=== PATIENT | female | born 1945 | race Caucasian/White ===

== ENCOUNTER 2017-03-04 16:01 | Observation (INO) | payer MEDICARE, BC ==
[~2017-03-04 16:01] MED LIST: ASPIRIN81 M1 CH; CALCIUM 600 +1 EA10 PO; DIOVAN HCT 3201 EACH PO; FISH OIL 1,0001 EA10 PO; GEMFIBROZIL600 MG PO; GLUCOPHAGE500 MG PO; LEVOTHYROXINE200 MC4 PO; MULTIVITAMINS1 EAC7 PO; RELAFEN750 MG PO; TERAZOSIN HCL5 MG PO; TOPROL XL100 M1 PO; [UNRECOGNIZED DRUG - OTHER] PO
[2017-03-04] MEDS ORDERED: FENOFIBRATE160 MG PO (16:08)
[2017-03-04] MEDS ORDERED: NORVASC10 M2 PO (16:11)
[2017-03-04] MEDS ORDERED: PROZAC20 M3 PO (16:12)
[2017-03-04] MEDS ORDERED: GLUCOPHAGE1000 M1 PO (16:12)
[2017-03-04] MEDS ORDERED: OMEPRAZOLE20 M3 PO (16:12)
[2017-03-04] MEDS ORDERED: ULTRAM50 M1 PO (16:46)
[2017-03-04] MEDS ORDERED: TYLENOL ARTHRI650 M1 PO (16:47)
[2017-03-04 17:32] LABS: BASO % 0.5 % (0-2); EOS % 3.1 % (0-7); EOSINOPHIL ABSOLUTE COUNT 0.1 tho/cmm (0.0-0.7); HGB-HEMOGLOBIN 12.3 gm/dl (12.0-15.5); IMMATURE GRANULOCYTES ABSOLUTE 0.01 tho/cmm (0-0.03); IMMATURE GRANULOCYTES PERCENT 0.2 % (0-0.3); LYMPH % 26.7 % (20-45); LYMPH ABSOLUTE COUNT 1.1 tho/cmm (0.8-4.5); MCHC MEAN CORPUSCULAR HGB CONC 33.2 % (32.0-36.0); MCV (MEAN CELL VOLUME) 87.3 fl (82.0-96.0); MEAN PLATELET VOLUME 11.6 cmc (9.4-12.4); MONO % 8.8 % (0-12); MONOCYTE ABSOLUTE COUNT 0.4 tho/cmm (0.0-1.2); NEUTROPHIL ABSOLUTE COUNT 2.6 tho/cmm (1.6-8.0); NEUTROPHIL-AUTOMATED 2.6 tho/cmm (1.6-8.0); NEUTROPHILS % 60.7 % (40-80); PLATELET COUNT 206 tho/cmm (150-450); RED BLOOD COUNT 4.24 mil/cmm (4.00-5.20); RED CELL DISTRIBUTION WIDTH 12.7 % (12.4-16.4); WHITE BLOOD COUNT 4.2 tho/cmm (4.0-10.0)
[2017-03-04 17:40] LABS: PROTHROMBIN TIME 11.6 SECONDS (9.0-13.6)
[2017-03-04 17:51] LABS: ALB/GLOB RATIO 0.9 (0.8-2.0); ALBUMIN 3.2 g/dl (3.5-5.0); ALKALINE PHOSPHATASE 64 U/L (33-138); ALT/SGPT 31 U/L (12-78); BILIRUBIN,TOTAL 0.3 mg/dl (0-1.5); BLOOD UREA NITROGEN 23 mg/dl (6-24); CALCIUM 8.9 mg/dl (8.5-10.5); CARBON DIOXIDE-VENOUS 27 mmol/L (22-32); CHLORIDE 103 mmol/l (96-110); CREATININE 0.99 mg/dl (0.50-1.10); GLUCOSE 160 mg/dL (70-110); LIPASE 66 U/L (73-393); SODIUM 139 mmol/L (135-145); eGFR VALUE FOR BLACK 66 mL/Min
[2017-03-04 17:59] LABS: ANION GAP 13 mmol/L (0-20); AST/SGOT 39 U/L (10-40); POTASSIUM 4.2 mmol/L (3.7-5.1)
[2017-03-05 05:38] LABS: BASO % 0.5 % (0-2); EOS % 3.5 % (0-7); EOSINOPHIL ABSOLUTE COUNT 0.1 tho/cmm (0.0-0.7); HCT-HEMATOCRIT 34.7 % (34.0-49.0); HGB-HEMOGLOBIN 11.6 gm/dl (12.0-15.5); IMMATURE GRANULOCYTES ABSOLUTE 0.01 tho/cmm (0-0.03); IMMATURE GRANULOCYTES PERCENT 0.3 % (0-0.3); LYMPH % 40.2 % (20-45); LYMPH ABSOLUTE COUNT 1.6 tho/cmm (0.8-4.5); MCH (MEAN CORPUSCULAR HGB) 29.3 pg (28.0-32.0); MCHC MEAN CORPUSCULAR HGB CONC 33.4 % (32.0-36.0); MCV (MEAN CELL VOLUME) 87.6 fl (82.0-96.0); MEAN PLATELET VOLUME 11.4 cmc (9.4-12.4); MONO % 9.3 % (0-12); MONOCYTE ABSOLUTE COUNT 0.4 tho/cmm (0.0-1.2); NEUTROPHIL ABSOLUTE COUNT 1.8 tho/cmm (1.6-8.0); NEUTROPHIL-AUTOMATED 1.8 tho/cmm (1.6-8.0); NEUTROPHILS % 46.2 % (40-80); PLATELET COUNT 199 tho/cmm (150-450); RED BLOOD COUNT 3.96 mil/cmm (4.00-5.20); RED CELL DISTRIBUTION WIDTH 12.7 % (12.4-16.4)
[2017-03-06 05:40] LABS: BASO % 0.8 % (0-2); EOS % 3.9 % (0-7); EOSINOPHIL ABSOLUTE COUNT 0.1 tho/cmm (0.0-0.7); HCT-HEMATOCRIT 34.7 % (34.0-49.0); HGB-HEMOGLOBIN 11.6 gm/dl (12.0-15.5); LYMPH % 27.5 % (20-45); MCH (MEAN CORPUSCULAR HGB) 29.1 pg (28.0-32.0); MCHC MEAN CORPUSCULAR HGB CONC 33.4 % (32.0-36.0); MCV (MEAN CELL VOLUME) 87.2 fl (82.0-96.0); MEAN PLATELET VOLUME 11.2 cmc (9.4-12.4); MONO % 8.5 % (0-12); MONOCYTE ABSOLUTE COUNT 0.3 tho/cmm (0.0-1.2); NEUTROPHIL ABSOLUTE COUNT 2.2 tho/cmm (1.6-8.0); NEUTROPHIL-AUTOMATED 2.2 tho/cmm (1.6-8.0); NEUTROPHILS % 59.3 % (40-80); PLATELET COUNT 197 tho/cmm (150-450); RED BLOOD COUNT 3.98 mil/cmm (4.00-5.20); RED CELL DISTRIBUTION WIDTH 12.7 % (12.4-16.4); WHITE BLOOD COUNT 3.6 tho/cmm (4.0-10.0)
[2017-03-06 06:18] LABS: ALB/GLOB RATIO 0.9 (0.8-2.0); ALBUMIN 3.1 g/dl (3.5-5.0); ALKALINE PHOSPHATASE 38 U/L (33-138); ALT/SGPT 27 U/L (12-78); BILIRUBIN,TOTAL 0.4 mg/dl (0-1.5); BLOOD UREA NITROGEN 14 mg/dl (6-24); CALCIUM 8.6 mg/dl (8.5-10.5); CARBON DIOXIDE-VENOUS 28 mmol/L (22-32); CHLORIDE 105 mmol/l (96-110); CREATININE 0.71 mg/dl (0.50-1.10); GLUCOSE 116 mg/dL (70-110); SODIUM 139 mmol/L (135-145); eGFR VALUE FOR BLACK >90 mL/Min
[2017-03-06 06:22] LABS: ANION GAP 10 mmol/L (0-20); AST/SGOT 34 U/L (10-40); POTASSIUM 3.7 mmol/L (3.7-5.1)
== END 2017-03-06 13:40 ==
LOC: EDMED 16:01 → EMR2 19:01 → CAR1 19:20
PROVIDERS: Emergency Medicine; Internal Medicine; Specialist; ADMIT Hospitalist
DX: K57.31 Diverticulosis of large intestine without perforation or abscess with bleeding (principal); K90.0 Celiac disease; K58.9 Irritable bowel syndrome, unspecified; E11.9 Type 2 diabetes mellitus without complications; I10 Essential (primary) hypertension; E78.5 Hyperlipidemia, unspecified; I87.2 Venous insufficiency (chronic) (peripheral); K42.9 Umbilical hernia without obstruction or gangrene; Z79.82 Long term (current) use of aspirin; Z79.84 Long term (current) use of oral hypoglycemic drugs; Z79.899 Other long term (current) drug therapy; Z88.1 Allergy status to other antibiotic agents; Z88.5 Allergy status to narcotic agent; Z86.010 Personal history of colon polyps; Z90.49 Acquired absence of other specified parts of digestive tract; Z90.710 Acquired absence of both cervix and uterus; Z96.642 Presence of left artificial hip joint
CPT/HCPCS: A9560; C9113; G0378; J7030